=== PATIENT | female | born 1955 | race Caucasian/White ===

== ENCOUNTER 2020-02-24 11:59 | Emergency (ER) | payer BC, OTHER, SELFPAY ==
--- NOTE | ~2020-02-24 | XR_ITS ---
EXAMINATION: XR chest 2V 02/24/2020 12:30 INDICATION: Chest pain PROCEDURE: 2 view chest COMPARISON: No prior studies FINDINGS: The lungs are clear. The cardiomediastinal silhouette is within normal limits. There are no pleural effusions. There is no pneumothorax suspected. The lungs are hyperinflated which is cons istent with, but not diagnostic of chronic obstructive pulmonary disease. IMPRESSION: 1: NO ACUTE CARDIOPULMONARY DISEASE. Reviewed, dictated and finalized at location A.
[2020-02-24 12:04] VITALS: BP 129/53; PULSE 69; RESP 20; TEMP 36.8; O2SAT 100
--- NOTE | 2020-02-24 12:04 | ECG_ITS ---
Measurements Intervals [place] Rate: 62 P: 66 OR: 137 QRS: 34 QRSD: 97 T: 46 QT: 390 QTc: 398 Interpretive Statements SINUS RHYTHM INCOMPLETE RIGHT BUNDLE BRANCH BLOCK BORDERLINE ST ABNORMALITY- ANTEROLATERAL LEADS BORDERLINE ECG Electronically Signed On 02-24-2020 18:09:31 CDT by Milton Finley D.O.
--- NOTE | 2020-02-24 12:20 | ECG_ITS ---
Measurements Intervals [place] Rate: 60 P: 48 [place]: 129 QRS: -15 QRSD: 102 T: 30 QT: 408 QTc: 408 Interpretive Statements SINUS RHYTHM INCOMPLETE RIGHT BUNDLE BRANCH BLOCK LOW QRS VOLTAGE IN PRECORDIAL LEADS BORDERLINE ECG Electronically Signed On 02-24-2020 18:10:26 CDT by Milton Finley D.O.
--- NOTE | 2020-02-24 12:24 | ED.CHESTPAIN ---
HPI - Chest Pain General Chief Complaint: Chest Pain Stated Complaint: jaw pain into chest Time Seen by Provider: 02/24/20 12:24 Source: patient Mode of arrival: ambulatory Limitations: no limitations History of Present Illness HPI narrative: Patient is a 65-year-old female with a history of hyperlipidemia who presents for evaluation of chest pain. Patient states she was at home reading this morning when she suddenly began to feel pain in her jaw that traveled into her chest. Pain was described as a deep, aching pressure. Some associated nausea, no diaphoresis or shortness of breath. Pain lasted approximately 20 to 30 minutes, patient was able to take a baby aspirin during this time and the pain resolved. No current pain in the ER. Patient denying any left shoulder or arm pain. She does have a positive family history of cardiac disease notable for an NE in her mother, and cousin with sudden cardiac from a heart attack. Patient denies any recent long car or air travel. No fever, chills, cough. No leg swelling or leg pain. Related Data Home Medications Medication Instructions Recorded Confirmed calcium carbonate 600 mg calcium 600 mg PO BID 06/08/19 12/04/19 (1,500 mg) tablet cholecalciferol (vitamin D3) 125 5,000 unit PO DAILY 06/08/19 12/04/19 mcg (5,000 unit) capsule mecobalamin (vitamin B12) 1,000 1,000 mcg SUBLINGUAL DAILY 06/08/19 12/04/19 mcg disintegrating tablet,sublingual multivitamin 1 tablet PO DAILY 06/08/19 12/04/19 omega-3 fatty acids 1,000 mg 2,000 mg PO BID cap 12/04/19 12/04/19 capsule Allergies Allergy/AdvReac Type Severity Reaction Status Date / Time Penicillins Allergy Mild Abdominal Verified 02/24/20 12:50 Pain amoxicillin Allergy Unknown Abdominal Verified 02/24/20 12:50 Pain Review of Systems Review of Systems: Narrative: CONSTITUTIONAL: Denies fever, chills, or sweats. EYES: Denies visual changes, CARDIOVASCULAR: Denies current chest pain, palpitations, or edema. RESPIRATORY: Denies cough or dyspnea. GASTROINTESTINAL: Denies abdominal pain, nausea, vomiting, or diarrhea. GENITOURINARY: Denies dysuria or hematuria. SKIN: Denies rash or itching. MUSCULOSKELETAL: Denies back pain, joint pain, or myalgia. NEUROLOGIC: Denies headache, numbness, or weakness. [facility] Past Medical History Medical History BMI 24.0-24.9, adult Elevated homocysteine Encounter for preventive health examination FHx: type 2 diabetes mellitus Hyperlipidemia On [facility] drug therapy Shingles Vitiligo Family History Family History (Updated 02/12/19 @ 16:45 by DOCTOR UNKNOWN) Father Family history of diabetes mellitus in first degree relative Family history of muscular dystrophy Diabetes mellitus Mother Family history of malignant neoplasm of breast in first degree relative Diabetes mellitus Family history of osteoporosis Family history of congenital heart disease Other Carcinoma of colon Social History Social History Smoking status: Never smoker Alcohol intake: never Exam Narrative: Exam Narrative: GENERAL: Awake, alert, conversant HEAD: Normocephalic, atraumatic. EYES: PERRLA and EOMI. ENT: Nares clear, no rhinorrhea or epistaxis. Mucous membranes moist. NECK: Supple. CHEST: No respiratory distress, breathing even and non labored, no reproducible chest wall pain HEART: Regular rate, sinus rhythm ABDOMEN:Non distended, non tender EXTREMITIES: Normal range of motion. No edema. SKIN: Warm, dry, no rash. NEURO:No focal deficits. Alert and oriented x3 Course Vital Signs Vital signs: Vital Signs Temperature 36.8 C 02/24/20 12:04 Pulse Rate 69 02/24/20 12:04 Respiratory Rate 20 02/24/20 12:04 Blood Pressure 129/53 L 02/24/20 12:04 Pulse Oximetry 100 02/24/20 12:04 Temperature 36.8 C 02/24/20 12:04 Pulse Rate 69
[2020-02-24 12:45] LABS: Basophils Percent Auto 0.9 % (0.2-1.2); Eosinophils Percent Auto 0.6 % (0-4.4); Hematocrit 41.4 % (37.0-47.0); Hemoglobin 13.6 g/dL (12.0-15.0); Immature Granulocyte Absolute 0.01 K/mm3 (0.00-0.031); Immature Granulocyte Percent A 0.2 % (0-0.5); Lymphocytes Absolute Auto 1.21 K/mm3 (0.9-3.2); Lymphocytes Percent Auto 25.9 % (18.3-44.2); Mean Corpuscular HGB Conc 32.9 g/dl (32-36); Mean Corpuscular Hemoglobin 29.4 pg (26-34); Mean Corpuscular Volume 89.6 fl (80-100); Mean Platelet Volume 11.3 fl (7.4-10.4); Monocytes Absolute Auto 0.4 K/mm3 (0.1-0.6); Monocytes Percent Auto 7.9 % (2.6-8.5); Neutrophils Percent Auto 64.5 % (45.5-73.1); Platelet Count Result 225 k/mm3 (150-375); Red Blood Count 4.62 M/mm3 (4.2-5.4); Red Cell Distribution Width 13.1 % (11.5-14.5); White Blood Count 4.7 K/mm3 (4.5-10.0)
[2020-02-24] MEDS: ASPIRIN 81 MG CHEWABLE TABLET 324 MG PO (12:49)
[2020-02-24 12:55] LABS: Partial Thromboplastin Time 30.8 SECONDS (22.3-36.8); Prothrombin Time 12.7 Seconds (11.1-14.7)
[2020-02-24 13:02] LABS: Anion Gap 12 mmol/L (8-16); Blood Urea Nitrogen 21 mg/dL (7-17); Calcium 9.9 mg/dL (8.4-10.2); Carbon Dioxide 26 mmol/L (22-30); Chloride 104 mmol/L (98-107); Estimated Glomerular Filt Rate > 60; Glucose 109 mg/dL (65-105); Potassium 4.2 mmol/L (3.4-5.0); Sodium 142 mmol/L (137-145)
[2020-02-24 13:13] LABS: Troponin I < 0.012 ng/mL (0.000-0.034)
[2020-02-24 15:47] LABS: Troponin I < 0.012 ng/mL (0.000-0.034)
[2020-02-24 16:47] VITALS: BP 132/77; PULSE 80; RESP 18; TEMP 36.6; O2SAT 99
== END 2020-02-24 16:48 | disposition home or self-care (01) ==
PROVIDERS: Emergency Medicine; Emergency Provider Emergency Medicine; PCP Internal Medicine
DX: R07.89 Other chest pain (principal); E78.5 Hyperlipidemia, unspecified; I45.10 Unspecified right bundle-branch block; R94.31 Abnormal electrocardiogram [ECG] [EKG]
CPT/HCPCS: 36415; 71046; 80048; 84484; 85025; 85610; 85730; 93005; 99284; A9270

== ENCOUNTER 2020-04-15 08:45 | Outpatient (CLI) | payer BC, OTHER, SELFPAY ==
--- NOTE | ~2020-04-15 | MM_ITS ---
EXAMINATION: MM screening [facility] BI w igor HISTORY: Screening mammogram TECHNIQUE: Craniocaudal and mediolateral oblique 3-D tomosynthesis images were obtained and synthetic 2-D images were generated. CAD analysis was submitted and interpreted. COMPARISON: 03/05/2019, 02/09/2018, 09/25/2016 bilateral digital screening mammogram examinations BREAST PARENCHYMAL COMPOSITION: There are scattered areas of fibroglandular density. FINDINGS: There are scattered bilateral benign calcifications. There is no evidence of suspicious mas s, calcification, or architectural distortion to suggest malignancy in either breast. There has been no suspicious interval change. IMPRESSION: 1. No mammographic evidence of malignancy. 2. Recommend routine screening mammography in one year. BI-RADS Category 2: Benign finding(s). Reviewed, dictated and finalized at location A. HEAD DUMPER
== END 2020-04-15 08:46 | disposition home or self-care (01) ==
LOC: ANHIMG 08:50
PROVIDERS: PCP Internal Medicine; Visit Provider Nurse Practitioner Obstetrics & Gynecology
DX: Z12.31 Encounter for screening mammogram for malignant neoplasm of breast (principal)
CPT/HCPCS: 77063; 77067

== ENCOUNTER 2020-07-25 10:45 | Outpatient (CLI) | payer BC, OTHER, SELFPAY | END 2020-07-25 10:46 | disposition home or self-care (01) | LOC: ANHCOVIDVC 10:45 | PROVIDERS: PCP Internal Medicine | DX: Z23 Encounter for immunization (principal) | CPT/HCPCS: 0001A; 91300 ==

== ENCOUNTER 2020-08-15 10:36 | Outpatient (CLI) | payer BC, OTHER, SELFPAY | END 2020-08-15 10:37 | disposition home or self-care (01) | LOC: ANHCOVIDVC 10:36 | PROVIDERS: PCP Internal Medicine | DX: Z23 Encounter for immunization (principal) | CPT/HCPCS: 0002A; 91300 ==

== ENCOUNTER 2020-09-24 10:50 | Outpatient (CLI) | payer BC, OTHER, SELFPAY ==
--- NOTE | 2020-09-24 | ECG_ITS ---
Measurements Intervals [place] Rate: 62 P: 68 [place]: 142 QRS: 19 QRSD: 93 T: 52 QT: 415 QTc: 422 Interpretive Statements SINUS RHYTHM POSSIBLE LEFT ATRIAL ENLARGEMENT LOW QRS VOLTAGE IN PRECORDIAL LEADS INCOMPLETE RIGHT BUNDLE BRANCH BLOCK BORDERLINE ST ABNORMALITY- ANT/INF LEADS BASELINE ARTIFACT- I, II, AVR, AVL, V4-V5 BORDERLINE ECG Electronically Signed On 09-24-2020 11:59:11 CDT by Milton Finley D.O.
--- NOTE | ~2020-09-24 | XR_ITS ---
EXAMINATION: XR chest 2V DATE: 09/24/2020 12:01 INDICATION: Preop for breast surgery. TECHNIQUE: Frontal and lateral views of the chest were obtained. COMPARISON: Chest 2 views 02/24/2020 FINDINGS: There is mild scarring at the lung apices. Calcified pulmonary nodules are consistent with old granulomatous disease. No pleural effusion or pneumothorax. The heart size is normal. IMPRESSION: 1. Stable mild scarring at the lung apices. Reviewed, dictated and finalized at location B.
== END 2020-09-24 10:51 | disposition home or self-care (01) ==
LOC: ANHLAB 11:16 → ANHCARD 11:22
PROVIDERS: PCP Internal Medicine
DX: Z01.818 Encounter for other preprocedural examination (principal); R91.8 Other nonspecific abnormal finding of lung field; I45.10 Unspecified right bundle-branch block
CPT/HCPCS: 71046; 93005

== ENCOUNTER 2021-09-19 15:07 | Outpatient (CLI) | payer MEDICARE, OTHER, SELFPAY ==
--- NOTE | ~2021-09-19 | DEXA_ITS ---
Bone Density Report Name: MEGAN SMITH Age: 66 Sex: Female Ethnicity: White Date of : 1955 Indication: osteopenia; postmenopausal Referring Provider: REZA, BUTCH [place] Study: Bone densitometry was performed. Exam Date: September 19, 2021 Accession number: [id number] Bone Density: Region BMD T-score Z-score Classification AP Spine(L1-L4) 0.970 -0.7 1.1 Normal Femoral Neck (Left) 0.585 -2.4 -0.8 Osteopenia Total Hip (Left) 0.754 -1.5 -0.3 Osteopenia Femoral Neck (Right) 0.657 -1.7 -0.2 Osteopenia Total Hip (Right) 0.737 -1.7 -0.4 Osteopenia Total Hip Mean 0.745 -1.6 -0.4 Osteopenia World Health Organization criteria for BMD impression classify patients as: Normal (T-score at or above -1.0), Osteopenia (T-score between -1.0 and -2.5), or Osteoporosis (T-score at or below -2.5). 10-year Fracture Risk(1): Major Osteoporotic Fracture 12% Hip Fracture 2.3% Reported Risk Factors: [place] (), Neck BMD=0.585, BMI=23.3 (1) FRAX(R) Version 3.08. Fracture probability calculated for an untreated patient. Fracture probability may be lower if the patient has received treatment. Previous Exams: Region Exam Age BMD T-score BMD Change BMD Change Date g/cm2 vs Baseline vs Previous AP Spine (L1-L4) 09/19/2021 66 0.970 -0.7 0.000 (0.0%)# -0.002 (-0.2%) 03/13/2019 64 0.972 -0.7 0.002 (0.2%)# 0.054 (5.9%)* 01/11/2017 61 0.918 -1.2 -0.052 (-5.4%) -0.052 (-5.4%) 04/21/2013 58 0.970 -0.7 Total Hip(Left) 09/19/2021 66 0.754 -1.5 -0.019 (-2.5%) -0.056 (-7.0%) 03/13/2019 64 0.811 -1.1 0.037 (4.8%)# 0.058 (7.7%)* 01/11/2017 61 0.753 -1.6 -0.020 (-2.6%) -0.020 (-2.6%) 04/21/2013 58 0.773 -1.4 Total Hip(Right) 09/19/2021 66 0.737 -1.7 -0.014 (-1.8%) -0.018 (-2.3%) 03/13/2019 64 0.755 -1.5 0.004 (0.5%)# -0.010 (-1.3%) 01/11/2017 61 0.765 -1.5 0.014 (1.9%)# 0.014 (1.9%)# 04/21/2013 58 0.751 -1.6 *Denotes significance at 95% confidence level, LSC for AP Spine = 0.022 g/cm2, LSC for Total Hip = 0.027 g/cm2 # Denotes dissimilar scan types or analysis methods Clinical Information Provided by Patient: Has used the following medications: Calcium Patient maximum height was 65 Menopause Age: 48 No regular weight bearing exercise Drinks caffeinated beverages Onset of menses at age 13 Number of children 2 Missed period for more than 6 months in a row
--- NOTE | ~2021-09-19 | MM_ITS ---
EXAMINATION: MM screening [facility] BI w igor HISTORY: Screening mammogram TECHNIQUE: Craniocaudal and mediolateral oblique 3-D tomosynthesis images were obtained and synthetic 2-D images were generated. CAD analysis was submitted and interpreted. COMPARISON: No prior mammogram is available for comparison at this institution. BREAST PARENCHYMAL COMPOSITION: There are scattered areas of fibroglandular density. FINDINGS: Status post bilateral reduction mammoplasty in September 2020, with associated diminished size of both breasts and bilateral fibroglandular asymmetry since 04/15/2020. There is no evidence of suspicious mass, calcification, or suspicious architectural distortion to sug gest malignancy in either breast. Occasional bilateral benign calcifications. IMPRESSION: 1. Status post bilateral reduction mammoplasty. No mammographic evidence of malignancy. 2. Recommend routine screening mammography in one year. BI-RADS Category 2: Benign Reviewed, dictated and finalized at location A. IMPRESSION: 1. Status post bilateral reduction mammoplasty. No mammographic evidence of mal ignancy. 2. Recommend routine screening mammography in one year. BI-RADS Category 2: Benign
== END 2021-09-19 15:08 | disposition home or self-care (01) ==
PROVIDERS: PCP Internal Medicine; Visit Provider Nurse Practitioner Obstetrics & Gynecology
DX: Z12.31 Encounter for screening mammogram for malignant neoplasm of breast (principal); M85.852 Other specified disorders of bone density and structure, left thigh; M85.851 Other specified disorders of bone density and structure, right thigh
CPT/HCPCS: 77063; 77067; 77080

== ENCOUNTER 2022-01-12 01:37 | Day surgery (SDC) | payer MEDICARE, OTHER, SELFPAY ==
[2021-12-26 08:50] VITALS: BMI 23.3
--- NOTE | 2022-01-09 17:18 | PM.HPGS ---
History of Present Illness History of Present Illness Consent: Risks, benefits, and alternatives have been discussed and questions answered. Patient agrees to proceed with procedure. Chief complaint: family hx of colon ca Narrative: Sirena Love is a 66 year old female referred for colon cancer screening. Her father had colon cancer. Review of Systems Review of Systems: All systems reviewed & are unremarkable except as noted in HPI and below PMFSH Past Medical History Medical History A-fib BMI 22.0-22.9, adult BMI 23.0-23.9, adult BMI 24.0-24.9, adult Chest pain Colon cancer screening Elevated homocysteine Encounter for Medicare annual wellness exam Encounter for preventive health examination Encounter for routine adult health examination without abnormal findings FHx: type 2 diabetes mellitus Hyperlipidemia On half-way drug therapy Shingles Vitamin D deficiency Vitiligo Family History Family History Father Family history of diabetes mellitus in first degree relative Family history of muscular dystrophy Diabetes mellitus Mother Family history of malignant neoplasm of breast in first degree relative Diabetes mellitus Family history of osteoporosis Family history of congenital heart disease Other , 2 1-st cousin ASHD (arteriosclerotic heart disease) Other Carcinoma of colon Social History Social History Smoking status: Never smoker Alcohol intake: never Substance use: never Substance use type: does not use Living arrangements: with family Spiritual care concerns: No Meds Home Medications and Allergies Home Medications Medication Instructions Recorded Confirmed Type calcium carbonate 600 mg calcium 600 mg PO BID 06/08/19 01/12/22 History (1,500 mg) tablet (Calcium) multivitamin 1 tablet PO DAILY 06/08/19 01/12/22 History omega-3 fatty acids 1,000 mg 2,000 mg PO BID 12/04/19 01/12/22 History capsule (Fish Oil Concentrate) nitroglycerin 0.4 mg sublingual 0.4 mg sublingual Q5-15M PRN chest 02/24/20 01/12/22 Rx tablet pain #20 tabs cholecalciferol (vitamin D3) 50 50 mcg PO DAILY 12/19/20 01/12/22 History mcg (2,000 unit) tablet cyanocobalamin (vitamin B-12) 1,000 mcg PO DAILY 12/19/20 01/12/22 History 1,000 mcg tablet fluticasone propionate 50 2 spray intranasal DAILY #3 ea 01/09/21 01/12/22 Rx mcg/actuation nasal spray,suspension metoprolol tartrate 25 mg tablet 12.5 mg PO BID 03/10/21 01/12/22 History rivaroxaban 20 mg tablet (Xarelto) 20 mg PO DAILY 07/07/21 01/12/22 History folic acid 1 mg tablet 1 mg PO DAILY #90 tabs 08/11/21 01/12/22 Rx rosuvastatin 10 mg tablet 10 mg PO DAILY #90 tabs 08/11/21 01/12/22 Rx valacyclovir 500 mg tablet 500 mg PO DAILY #90 tabs 08/11/21 01/12/22 Rx (Valtrex) Allergies Allergy/AdvReac Type Severity Reaction Status Date / Time Penicillins Allergy Mild Abdominal Verified 01/12/22 06:30 Pain amoxicillin Allergy Unknown Abdominal Verified 01/12/22 06:30 Pain Exam Const: General: alert Orientation/consciousness: patient oriented x3 Resp: Auscultation: clear to auscultation bilaterally Cardio: Rhythm: regular rhythm GI: GI Palp: Yes Soft to palpation and No Tenderness to palpation present (GI) Neuro: General: patient oriented x3 Assessment and Plan Assessment and plan (1) Colon cancer screening: Code(s): Z12.11 - Encounter for screening for malignant neoplasm of colon Status: Acute Assessment and Plan: Colonoscopy with possible biopsy or polypectomy or cautery or injection of substances.
[2022-01-12 06:31] VITALS: BP 125/51; PULSE 47; RESP 16; TEMP 36.4; O2SAT 100
[2022-01-12] MEDS: LACTATED RINGERS 1,000 ML 150 ML IV CONT (06:42)
--- NOTE | 2022-01-12 07:08 | WPDANESEPPF ---
Anes - Initial Pre Proc Eval Procedure: Operation Date: 01/12/22 07:30 Proposed Procedures p Screening Colonoscopy - Grabiel Ruvalcaba MD Date/Time: 01/12/22 07:08 Surgeon: Grabiel Ruvalcaba MD Pre Op Diagnosis: family hx of colon ca Patient Data Age: 66 Gender: F Height: 1.63 m Weight: 61.5 kg Last Vital Signs Temp 36.4 C 01/12/22 06:31 Pulse 47 L 01/12/22 06:31 Resp 16 01/12/22 06:31 BP 125/51 L 01/12/22 06:31 Pulse Ox 100 01/12/22 06:31 O2 Del Method Room Air 01/12/22 06:31 Allergies Allergy/AdvReac Type Severity Reaction Status Date / Time Penicillins Allergy Mild Abdominal Verified 01/12/22 06:30 Pain amoxicillin Allergy Unknown Abdominal Verified 01/12/22 06:30 Pain Home Medications Medication Instructions Recorded Confirmed Type calcium carbonate 600 mg calcium 600 mg PO BID 06/08/19 01/12/22 History (1,500 mg) tablet (Calcium) multivitamin 1 tablet PO DAILY 06/08/19 01/12/22 History omega-3 fatty acids 1,000 mg 2,000 mg PO BID 12/04/19 01/12/22 History capsule (Fish Oil Concentrate) nitroglycerin 0.4 mg sublingual 0.4 mg sublingual Q5-15M PRN chest 02/24/20 01/12/22 Rx tablet pain #20 tabs cholecalciferol (vitamin D3) 50 50 mcg PO DAILY 12/19/20 01/12/22 History mcg (2,000 unit) tablet cyanocobalamin (vitamin B-12) 1,000 mcg PO DAILY 12/19/20 01/12/22 History 1,000 mcg tablet fluticasone propionate 50 2 spray intranasal DAILY #3 ea 01/09/21 01/12/22 Rx mcg/actuation nasal spray,suspension metoprolol tartrate 25 mg tablet 12.5 mg PO BID 03/10/21 01/12/22 History rivaroxaban 20 mg tablet (Xarelto) 20 mg PO DAILY 07/07/21 01/12/22 History folic acid 1 mg tablet 1 mg PO DAILY #90 tabs 08/11/21 01/12/22 Rx rosuvastatin 10 mg tablet 10 mg PO DAILY #90 tabs 08/11/21 01/12/22 Rx valacyclovir 500 mg tablet 500 mg PO DAILY #90 tabs 08/11/21 01/12/22 Rx (Valtrex) Patient hx anesthesia problems: none Family hx anesthesia problems: none Results Review: All pre-operative results and documents have been reviewed as part of the pre-operative evaluation. [facility] Past Medical History Medical History A-fib BMI 22.0-22.9, adult BMI 23.0-23.9, adult BMI 24.0-24.9, adult Chest pain Colon cancer screening Elevated homocysteine Encounter for Medicare annual wellness exam Encounter for preventive health examination Encounter for routine adult health examination without abnormal findings FHx: type 2 diabetes mellitus Hyperlipidemia On terminal [employer] drug therapy Shingles Vitamin D deficiency Vitiligo Family History Family History Father Family history of diabetes mellitus in first degree relative Family history of muscular dystrophy Diabetes mellitus Mother Family history of malignant neoplasm of breast in first degree relative Diabetes mellitus Family history of osteoporosis Family history of congenital heart disease Other , 2 1-st cousin ASHD (arteriosclerotic heart disease) Other Carcinoma of colon Social History Social History Smoking status: Never smoker Alcohol intake: never Substance use: never Substance use type: does not use Living arrangements: with family Spiritual care concerns: No Anes - Eval Final PreProcedure Day of Procedure 01/12/22 07:08 Patient weight: normal Heart: regular rate and rhythm Lungs: clear to auscultation and normal air movement Airway: Mallampati scale class II Neurological: alert and oriented Last oral intake: >/= 8 hours ASA classification: III Emergent: no Anesthetic plan: proceed Anesthesia type and monitoring: general GIVS Results Review: All pre-operative results and documents have been reviewed as part of the pre-operative evaluation. Informed Consent: The patient's anesthetic plan and its attend
[2022-01-12 07:41] VITALS: BP 101/55; PULSE 51; RESP 17; O2SAT 100
[2022-01-12 07:51] VITALS: BP 116/66; PULSE 50; RESP 17; O2SAT 100
[2022-01-12 08:01] VITALS: BP 116/65; PULSE 50; RESP 20; O2SAT 100
== END 2022-01-12 08:04 | disposition home or self-care (01) ==
PROVIDERS: PCP Internal Medicine; Visit Provider Internal Medicine Gastroenterology
PROC: 0DJD8ZZ Inspection of Lower Intestinal Tract, Via Natural or Artificial Opening Endoscopic (ICD-10-PCS; CPT 45378; principal; 2022-01-12 07:30)
DX: Z12.11 Encounter for screening for malignant neoplasm of colon (principal); Z80.0 Family history of malignant neoplasm of digestive organs; I48.91 Unspecified atrial fibrillation; E11.9 Type 2 diabetes mellitus without complications; E55.9 Vitamin D deficiency, unspecified; E78.5 Hyperlipidemia, unspecified; Z79.01 Long term (current) use of anticoagulants
CPT/HCPCS: G0105; J2704; J7120

== ENCOUNTER 2022-09-04 12:13 | Outpatient (CLI) | payer MEDICARE, OTHER, SELFPAY ==
--- NOTE | ~2022-09-04 | MMUS_ITS ---
EXAMINATION: MM diagnostic saran BI w igor, US breast BI limited HISTORY: Patient with history of bilateral reduction mammoplasty presents with bilateral subareolar b reast pain TECHNIQUE: Craniocaudal, mediolateral, and mediolateral oblique 3-D tomosynthesis images of the breas ts were performed and synthetic 2-D images were generated. CAD analysis was submitted and interpreted . High resolution limited bilateral breast ultrasound was performed. COMPARISON: 09/19/2021, 04/15/2020, 03/13/2019 BREAST PARENCHYMAL COMPOSITION: There are scattered areas of fibroglandular density. FINDINGS: MAMMOGRAPHIC FINDINGS: There are bilateral oil cysts of the breasts with associated developing dystrophic calcifications, co nsistent with history of reduction mammoplasty. No suspicious mass, calcification, or architectural d istortion are identified. No mammographic correlate is identified for the patient's reported breast p ain. ULTRASOUND: There are complex sonographically detected masses of the right breast corresponding to areas of coil cyst/fat necrosis. No suspicious cystic or solid mass is identified in either breast. No sonographic correlate is identified for the patient's breast pain. IMPRESSION: 1. No suspicious mammographic or sonographic correlate is identified for the patient's reported breas t pain. Further evaluation at this time should be based on clinical assessment. Continued follow-up p hysical examination is recommended. 2. Recommend routine screening mammography in one year. BI-RADS Category 2: Benign finding(s). Reviewed, dictated and finalized at location A. IMPRESSION: 1. No suspicious mammographic or sonographic correlate is identified for the gage enrique's reported breast pain. Further evaluation at this time should be based o n clinical assessment. Continued follow-up physical examination is recommended. 2. Recommend routine screening mammography in one year. BI-RADS Category 2: Benign finding(s).
== END 2022-09-04 12:14 | disposition home or self-care (01) ==
PROVIDERS: PCP Internal Medicine; Visit Provider Nurse Practitioner Obstetrics & Gynecology
DX: N64.4 Mastodynia (principal)
CPT/HCPCS: 76642; 77062; 77066; G0279